=== PATIENT | male | born 1975 | race Hispanic/Latino ===

== ENCOUNTER 2020-03-07 08:09 | Inpatient (IN) | payer SELFPAY ==
[2020-03-07 08:25] LABS: Arterial Blood Carboxyhemoglob 1.3 % (0-1.5); Blood O2 Saturation 97.6 % (92-98.5)
[2020-03-07] MEDS ORDERED: NA CHLORIDE 0.9% 2,000 ML ONE (08:33)
[2020-03-07 08:41] LABS: Absolute Lymphocytes (CBC) 0.7 K/uL (0.7-4.9); Basophils % 0.9 % (0-1.3); Hematocrit 51.9 % (39.6-49.0); Lymphocytes % 3.8 % (15.3-44.8); MPV 9.9 fL (7.6-11.3); Protime INR 0.95; RBC Red Blood Cell Count 4.98 M/uL (4.33-5.43)
[2020-03-07] MEDS ORDERED: SODIUM BICARB 50 MEQ/50ML VIAL ONE (08:42)
[2020-03-07] MEDS ORDERED: D5W 1,000 ML with NA BICARB 8.4% 150 MEQ IV SCH ×2 (08:45)
[2020-03-07] MEDS ORDERED: INSULIN -REGULAR HUMAN 100 UNIT in NA CHLORIDE 0.9% 100 ML IV SCH ×2 (09:00→09:27)
[2020-03-07 09:23] LABS: ALT/SGPT 69 U/L (12-78); AST/SGOT 29 U/L (15-37); Alkaline Phosphatase 157 U/L (45-117); BUN Blood Urea Nitrogen 29 mg/dL (7-18); Bilirubin Direct 0.2 mg/dL (0-0.2); Bilirubin Total 0.6 mg/dL (0.2-1.0); Magnesium 3.2 mg/dL (1.8-2.4); NT PRO-BNP 99 pg/mL (<125); Potassium 4.2 mmol/L (3.5-5.1); Protein, Total 8.6 g/dL (6.4-8.2); Sodium Level 125 mmol/L (136-145); Troponin (Emerg Dept Use Only) < 0.02 ng/mL (0.0-0.045)
[2020-03-07] MEDS ORDERED: ONDANSETRON 4 MG/2 ML VIAL IV PRN (09:23)
--- NOTE | 2020-03-07 09:24 | RAD REPORT ---
EXAM DESCRIPTION: Funmilayo Single View03/07/2020 8:54 am CLINICAL HISTORY: Shortness of breath COMPARISON: none FINDINGS: The lungs appear clear of acute infiltrate. The heart is normal size IMPRESSION: No acute abnormalities displayed
[2020-03-07 09:30] LABS: Bicarbonate 3 mmol/L (21-32); Glucose Level 902 mg/dL (74-106)
--- NOTE | 2020-03-07 09:44 | ER ---
Nurse's Notes [facility] Name: Mikael Chavez Age: 44 yrs Sex: Male : 1975 Arrival Date: 03/07/2020 Time: 08:09 Bed 5 Private MD: Diagnosis: Acute kidney failure;Type 1 diabetes mellitus with ketoacidosis without coma;Hypermagnesemia Presentation: 03/07 08:10 Chief complaint: Patient states: thinks his blood sugar is high, and BP is high, is iw having trouble seeing, pt tachypneic , has been out of meds for two weeks. 08:22 Risk Assessment: Do you want to hurt yourself or someone else? Patient reports no iw desire to harm self or others. Onset of symptoms was March 06, 2020. 08:22 Method Of Arrival: Wheelchair iw 08:22 Acuity: BROOKE 2 iw 08:33 Coronavirus screen: At this time, the client does not indicate any symptoms associated iw with coronavirus-19. Ebola Screen: Patient negative for fever greater than or equal to 101.5 degrees Fahrenheit, and additional compatible Ebola Virus Disease symptoms Patient denies exposure to infectious person. Patient denies travel to an Ebola-affected area in the 21 days before illness onset. No symptoms or risks identified at this time. Initial Sepsis Screen: Does the patient meet any 2 criteria? No. Patient's initial sepsis screen is negative. Does the patient have a suspected source of infection? No. Patient's initial sepsis screen is negative. Historical: - Allergies: 08:33 No Known Allergies; iw - Home Meds: 08:33 metformin 1,000 mg Oral tab 1 tab 2 times per day [Active]; lisinopril Oral once daily iw [Active]; glimepiride Oral once daily [Active]; - PMHx: 08:33 Diabetes - NIDDM; Hypertension; iw - Immunization history:: Adult Immunizations unknown. - Social history:: Smoking status: unknown. Screenin:25 Abuse screen: Denies threats or abuse. Denies injuries from another. Nutritional jl7 screening: No deficits noted. Tuberculosis screening: No symptoms or risk factors identified. Fall Risk IV access (20 points). Total Cooper Fall Scale indicates No Risk (0-24 pts). Assessment: 08:15 General: Appears distressed, uncomfortable, ill, Behavior is cooperative, anxious, jl7 restless. Pain: Denies pain. Neuro: Level of Consciousness is obeys commands, confused, Oriented to person, situation, Speech is slurred, Facial symmetry appears normal. Cardiovascular: Heart tones present Patient's skin is warm and dry. Rhythm is. Respiratory: Airway is patent Respiratory effort is even, labored, with nasal flaring, Respiratory pattern is symmetrical, Kussmaul tachypnea. Derm: Skin is pink, warm \T\ dry. 09:12 Reassessment: insulin drip started to right hand, at 6 units per hour, pt voided per iw urinal 500+ ml. 10:15 Reassessment: Pranav Hugger placed on Pt. jl7 10:15 Reassessment: Pt placed in hospital bed. jl7 12:00 Reassessment: Dr. Felipe at bedside. jl7 13:00 Reassessment: Pt noted to be vomiting coffee ground emesis, ERP notified, see MAR for jl7 orders. 13:12 Reassessment: 80 mg Protonix IVP given, ERP notified. jl7 13:15 Reassessment: Dr. Felipe notified of pt status. jl7 Vital Signs: 08:27 BP 137 / 65; Pulse 83; Resp 30 S; Pulse Ox 100% on R/A; Weight 72.57 kg; iw 09:00 BP 127 / 68; Pulse 92; Resp 28; Pulse Ox 100% ; jl7 09:22 BP 127 / 70; Pulse 88; Resp 26; Pulse Ox 100% ; jl7 10:00 BP 109 / 86; Pulse 88; Resp 29; Pulse Ox 100% ; jl7 10:15 Temp 91.9(R); jl7 10:26 BP 135 / 81; Pulse 87; Resp 26; Pulse Ox 100% ; jl7 11:00 BP 137 / 78; Pulse 87; Resp 25; Pulse Ox 100% ; jl7 11:31 BP 132 / 83; Pulse 100; Resp 23 S; Temp 92.8(C); Pulse Ox 100% on R/A; jl7 12:04 BP 117 / 70; Pulse 99; Resp 25; Temp 93.4; Pulse Ox 100% ; jl7 13:15 BP 144 / 73; Pulse 133; Resp 24; Temp 96.1; Pulse Ox 100% ; jl7 ED Course: 08:09 Patient arrived in ED. as 08:11 Figueroa Delgado MD is Attending Physician. rn 08:12 Jack Steinberg PA is PHCP. rn 08:23 Triage completed. iw 08:25 Patient has correct armband on for positive identification. Placed in gown. Bed in low jl7 position. Call light in reach. Side rails up X 1. monitoring engineer on. Pulse ox on. NIBP on. Warm blanket given. 08:30 Ritesh Mirza, LYN is Primary Nurse. jl7 08:33 Arm band placed on. iw 08:38 Inserted saline lock: 20 gauge in right hand, using aseptic technique. jl7 08:40 EKG done, by ED staff, reviewed by Jack JARQUIN. Inserted saline lock: 20 gauge in em1 right antecubital area, using aseptic technique. Blood collected. 08:40 Initial lab(s) drawn, by ia, sent to lab. em1 08:54 XRAY Chest (1 view) In Process Unspecified. EDMS 09:42 Aguilar Felipe MD is Hospitalizing Provider. jr8 09:54 Inserted saline lock: 22 gauge in left hand, using aseptic technique. jl7 11:00 Speci-cath kit inserted, using sterile technique, 16 Fr., specimen obtained. returned jl7 clear yellow urine. Patient tolerated well. 11:00 Pt pulled right hand IV, intact, blood controlled. jl7 11:28 BMP Sent. jl7 11:28 COVID-19 Sent. jl7 11:28 COVID-19 swab sent to lab. jl7 12:02 No provider procedures requiring assistance completed. jl7 12:06 Inserted saline lock: 20 gauge in right hand, using aseptic technique. jl7 12:42 CORONAVIRUS Sent. jl7 12:42 Urine Dipstick--Ancillary (enter results) Sent. jl7 Administered Medications: 08:25 Drug: NS 0.9% 1000 ml Route: IV; Rate: 1000 ml; Site: left antecubital; jl7 09:20 Follow up: Response: No adverse reaction; IV Status: Completed infusion; IV Intake: jl7 1000ml 08:25 Drug: NS 0.9% 1000 ml Route: IV; Rate: 1000 ml; Site: left antecubital; jl7 10:29 Follow up: Response: No adverse reaction; IV Status: Completed infusion; IV Intake: jl7 1000ml 08:32 Drug: Sodium Bicarbonate 1 amp Route: IVP; Site: left antecubital; jl7 09:57 Follow up: Response: No adverse reaction jl7 09:12 Drug: Insulin Drip - (Insulin Regular Human 100 units, NS 0.9% 100 ml) {Co-Signature: [facility] bp (Raul Woodson RN).} Route: IV; Rate: calculated rate; Site: right hand; 09:41 Follow up: Rate change 7 units/hr iw 12:05 Follow up: Rate change 9 units/hr jl7 13:30 Follow up: IV Status: Infusion continued upon admission jl7 09:15 Drug: D5W 1000 ml, Sodium Bicarbonate 150 mEq Route: IV; Rate: 150 ml/hr; Site: left jl antecubital; 09:56 Follow up: IV Status: Infusion continued upon admission jl7 12:05 Follow up: Rate change bolus jl7 12:30 Follow up: Response: No adverse reaction; IV Status: Completed infusion; IV Intake: jl7 1000ml 11:10 Drug: Ativan 0.5 mg Route: IVP; Site: left antecubital; jl7 12:05 Follow up: Response: No adverse reaction jl7 11:55 Drug: NS 0.9% with KCl 20 mEq/L 1000 ml Route: IV; Rate: 500 ml/hr; Site: right hand; jl7 13:30 Follow up: IV Status: Infusion continued upon admission jl7 13:03 Drug: Phenergan 12.5 mg Route: IVP; Site: right hand; jl7 13:20 Follow up: Response: No adverse reaction; Nausea is decreased jl7 13:08 Drug: ProTONIX 40 mg Route: IVP; Site: right hand; jl7 13:30 Follow up: Response: No adverse reaction jl7 Intake: 09:20 IV: 1000ml; Total: 1000ml. jl7 10:29 IV: 1000ml; Total: 2000ml. jl7 12:30 IV: 1000ml; Total: 3000ml. jl7 Output: 09:00 Urine: 400ml (Voided); Total: 400ml. jl7 11:00 Urine: 850ml (Voided); Total: 1250ml. jl7 12:04 Urine: 850ml (Ma); Total: 2100ml. jl7 Outcome: 09:43 Decision to Hospitalize by Provider. jr8 13:28 Admitted to ICU accompanied by nurse, accompanied by tech, via stretcher, on monitor, jl7 with chart, Report called to LYN Hood 13:28 Condition: stable 13:28 Discharge instructions given to patient, Instructed on the need for admit, Demonstrated understanding of instructions. 13:30 Patient left the ED. jl7 Signatures: Dispatcher [employer] Elizabeth Lui Irene, LYN RN iw Figueroa Delgado MD MD rn Jonathan, Jack Aguirre, PA PA jr8 Ritesh Mirza RN RN jl7 Raul Woodson RN bp Corrections: (The following items were deleted from the chart) 08:34 08:10 Chief complaint: Patient states: thinks his blood sugar is high, and BP is high, iw is having trouble seeing, pt tachypneic iw 09:08 08:27 BP 137 / 65; Pulse 83bpm; Resp 30bpm; Spontaneous; Pulse Ox 100% RA; iw iw 11:31 09:22 BP 127 / 70; Pulse 88bpm; Resp 26bpm; Pulse Ox 100%; Temp 97.1F; jl7 jl7 12:09 11:00 Ma cath inserted, using sterile technique, 16 Fr., by ia, balloon inflated, to jl7 gravity drainage, urine specimen collected. returned clear yellow urine. Patient tolerated well. jl7
--- NOTE | 2020-03-07 09:44 | EDPHYS ---
Physician Documentation [facility] Name: Mikael Chavez Age: 44 yrs Sex: Male : 1975 Arrival Date: 03/07/2020 Time: 08:09 Bed 5 Private MD: ED Physician Figueroa Delgado HPI: 03/07 09:45 This 44 yrs old Male presents to ER via Wheelchair with complaints of High jr8 Blood Sugar. 09:45 The patient or guardian reports hyperglycemia, polydipsia. Onset: The symptoms/episode jr8 began/occurred gradually. Associated signs and symptoms: Pertinent positives: shortness of breath. Current symptoms: In the emergency department the patient's symptoms are unchanged from the initial presentation. It is unknown whether or not the patient has had similar symptoms in the past. The patient has not recently seen a physician. Patient stated that he has been out of his meds. Yesterday started to have blurred vision and now with shortness of breath . Historical: - Allergies: 08:33 No Known Allergies; iw - Home Meds: 08:33 metformin 1,000 mg Oral tab 1 tab 2 times per day [Active]; lisinopril Oral once daily iw [Active]; glimepiride Oral once daily [Active]; - PMHx: 08:33 Diabetes - NIDDM; Hypertension; iw - Immunization history:: Adult Immunizations unknown. - Social history:: Smoking status: unknown. ROS: 09:45 ENT: Negative for injury, pain, and discharge, Neck: Negative for injury, pain, and jr8 swelling, Cardiovascular: Negative for chest pain, palpitations, and edema, Abdomen/GI: Negative for abdominal pain, nausea, vomiting, diarrhea, and constipation, Back: Negative for injury and pain, MS/Extremity: Negative for injury and deformity, Skin: Negative for injury, rash, and discoloration, Neuro: Negative for headache, weakness, numbness, tingling, and seizure. 09:45 Constitutional: Positive for fatigue, malaise. 09:45 Eyes: Positive for blurry vision. 09:45 Respiratory: Positive for shortness of breath. 09:45 Endocrine: Positive for polydipsia. Exam: 09:45 Eyes: Pupils equal round and reactive to light, extra-ocular motions intact. Lids and jr8 lashes normal. Conjunctiva and sclera are non-icteric and not injected. Cornea within normal limits. Periorbital areas with no swelling, redness, or edema. ENT: Nares patent. No nasal discharge, no septal abnormalities noted. Tympanic membranes are normal and external auditory canals are clear. Oropharynx with no redness, swelling, or masses, exudates, or evidence of obstruction, uvula midline. Mucous membranes moist. Neck: Trachea midline, no thyromegaly or masses palpated, and no cervical lymphadenopathy. Supple, full range of motion without nuchal rigidity, or vertebral point tenderness. No Meningismus. Cardiovascular: Regular rate and rhythm with a normal S1 and S2. No gallops, murmurs, or rubs. Normal PMI, no JVD. No pulse deficits. Abdomen/GI: Soft, non-tender, with normal bowel sounds. No distension or tympany. No guarding or rebound. No evidence of tenderness throughout. Back: No spinal tenderness. No costovertebral tenderness. Full range of motion. Skin: Warm, dry with normal turgor. Normal color with no rashes, no lesions, and no evidence of cellulitis. MS/ Extremity: Pulses equal, no cyanosis. Neurovascular intact. Full, normal range of motion. 09:45 Respiratory: mild respiratory distress is noted, Respirations: tachypnea, that is moderate. 09:45 Neuro: Orientation: to person, place \T\ time. Mentation: able to follow commands, slow to respond, sleepy, Memory: appropriate for stated age, Cranial nerves: CN I not tested, CN II- XII are normal as tested, visual adames are intact. extraocular movements are intact, Facial palsy and sensory deficits are absent. Nystagmus is absent. Speech is slurred, Tongue strength is normal, Motor: moves all fours, Sensation: no obvious gross deficits, Gait: not tested. seizure activity, is not displayed by the patient, Abnormal movements: there are no abnormal movements. 12:10 ECG was reviewed by the Attending Physician. jr8 Vital Signs: 08:27 BP 137 / 65; Pulse 83; Resp 30 S; Pulse Ox 100% on R/A; Weight 72.57 kg; iw 09:00 BP 127 / 68; Pulse 92; Resp 28; Pulse Ox 100% ; jl7 09:22 BP 127 / 70; Pulse 88; Resp 26; Pulse Ox 100% ; jl7 10:00 BP 109 / 86; Pulse 88; Resp 29; Pulse Ox 100% ; jl7 10:15 Temp 91.9(R); jl7 10:26 BP 135 / 81; Pulse 87; Resp 26; Pulse Ox 100% ; jl7 11:00 BP 137 / 78; Pulse 87; Resp 25; Pulse Ox 100% ; jl7 11:31 BP 132 / 83; Pulse 100; Resp 23 S; Temp 92.8(C); Pulse Ox 100% on R/A; jl7 12:04 BP 117 / 70; Pulse 99; Resp 25; Temp 93.4; Pulse Ox 100% ; jl7 13:15 BP 144 / 73; Pulse 133; Resp 24; Temp 96.1; Pulse Ox 100% ; jl7 MDM: 08:11 Patient medically screened. rn 09:41 Data reviewed: vital signs, nurses notes, lab test result(s), EKG, radiologic studies, jr8 plain films. Data interpreted: Pulse oximetry: on room air is 100 %. Interpretation: normal. Counseling: I had a detailed discussion with the patient and/or guardian regarding: the historical points, exam findings, and any diagnostic results supporting the discharge/admit diagnosis, lab results, radiology results, the need for further work-up and treatment in the hospital. Physician consultation: Aguilar Felipe MD was called at 09:42, was contacted at 09:42, regarding admission, to the ICU, consult, patient's condition, and will see patient. 09:49 ED course: Spoke with over phone and explained to her that he will need ICU jr8 admission for his glucose. 03/07 08:15 Order name: Basic Metabolic Panel; Complete Time: 03/07 08:15 Order name: CBC with Diff; Complete Time: 08:48 03/07 08:15 Order name: LFT's; Complete Time: 03/07 08:15 Order name: Magnesium; Complete Time: :03/07 08:15 Order name: NT PRO-BNP; Complete Time: :34 03/07 08:15 Order name: PT-INR; Complete Time: 08:48 03/07 08:15 Order name: Troponin (emerg Dept Use Only); Complete Time: :34 03/07 08:15 Order name: ABG; Complete Time: 08:51 jr8 03/07 08:15 Order name: Ketone, Serum; Complete Time: 09:34 jr8 03/07 08:26 Order name: Glucose, Ancillary Testing; Complete Time: 08:31 EDMS 03/07 09:28 Order name: Acetone Level EDMS 03/07 09:28 Order name: Acetone Level; Complete Time: 13:01 EDMS 03/07 09:28 Order name: Acetone Level EDMS 03/07 09:28 Order name: Acetone Level EDMS 03/07 09:28 Order name: Acetone Level EDMS 03/07 09:28 Order name: Acetone Level EDMS 03/07 09:28 Order name: Acetone Level EDMS 03/07 09:28 Order name: Basic Metabolic Panel EDMS 03/07 09:28 Order name: Basic Metabolic Panel; Complete Time: 13:01 EDMS 03/07 09:28 Order name: Basic Metabolic Panel EDMS 03/07 09:28 Order name: Basic Metabolic Panel EDMS 03/07 09:28 Order name: Basic Metabolic Panel EDMS 03/07 09:28 Order name: Basic Metabolic Panel EDMS 03/07 09:28 Order name: Basic Metabolic Panel EDMS 03/07 09:28 Order name: CBC with Automated Diff EDMS 03/07 09:28 Order name: CBC with Automated Diff EDMS 03/07 09:28 Order name: CBC with Automated Diff EDMS 03/07 09:28 Order name: CBC with Automated Diff EDMS 03/07 09:29 Order name: Lipid Profile EDMS 03/07 09:29 Order name: Lipid Profile EDMS 03/07 08:15 Order name: XRAY Chest (1 view); Complete Time: 09:25 jr8 03/07 09:29 Order name: Magnesium EDMS 03/07 09:29 Order name: Magnesium EDMS 03/07 09:29 Order name: Magnesium EDMS 03/07 09:29 Order name: Phosphorus EDMS 03/07 09:29 Order name: Phosphorus EDMS 03/07 09:29 Order name: Phosphorus EDMS 03/07 09:29 Order name: Phosphorus EDMS 03/07 09:29 Order name: ABG Arterial Blood Gas; Complete Time: 11:16 EDMS 03/07 09:30 Order name: Ferritin EDMS 03/07 09:30 Order name: Folic Acid, (Folate) EDLA 03/07 09:30 Order name: Hemoglobin A1c EDLA 03/07 09:30 Order name: Iron EDLA 03/07 09:30 Order name: Lactate EDLA 03/07 09:30 Order name: T4 Free EDLA 03/07 09:30 Order name: Thyroid Stimulating Hormone EDLA 03/07 09:30 Order name: Vitamin B12 Level EDLA 03/07 10:29 Order name: BMP jl7 03/07 10:34 Order name: COVID-19 em1 03/07 11:31 Order name: Basic Metabolic Panel; Complete Time: 11:40 EDLA 03/07 12:09 Order name: Urine Dipstick--Ancillary (enter results) em1 03/07 12:19 Order name: CORONAVIRUS EDLA 03/07 12:50 Order name: Urine Dipstick-Ancillary; Complete Time: 12:53 EDLA 03/07 13:16 Order name: SARS-COV-2 RT PCR; Complete Time: 13:22 [facility] 03/07 08:15 Order name: EKG; Complete Time: 08:16 8 03/07 08:15 Order name: Cardiac monitoring; Complete Time: 08:29 jr8 03/07 08:15 Order name: EKG - Nurse/Tech; Complete Time: 08:35 8 03/07 08:15 Order name: IV Saline Lock; Complete Time: 08:29 jr8 03/07 08:15 Order name: Labs collected and sent; Complete Time: 08:29 8 03/07 08:15 Order name: O2 Per Protocol; Complete Time: 08:35 8 03/07 08:15 Order name: O2 Sat Monitoring; Complete Time: 08:29 8 03/07 09:28 Order name: CONS Pharmacy Consult EDLA 03/07 09:28 Order name: NPO EDLA 03/07 12:02 Order name: Urine Dipstick-Ancillary (obtain specimen); Complete Time: 12:07 EC:10 Rate is 92 beats/min. Rhythm is regular, Normal Sinus Rhythm. QRS [place] is Normal. DC jr8 interval is normal at 150 msec. QRS interval is normal at 100 msec. QT interval is prolonged at 504 msec. Q waves are Present in lead III. T waves are Normal. No ST changes noted. Clinical impression: No evidence of ischemia and NS Rhythm with Prolonged QT. Interpreted by me. Reviewed by me. Administered Medications: 08:25 Drug: NS 0.9% 1000 ml Route: IV; Rate: 1000 ml; Site: left antecubital; jl7 09:20 Follow up: Response: No adverse reaction; IV Status: Completed infusion; IV Intake: jl7 1000ml 08:25 Drug: NS 0.9% 1000 ml Route: IV; Rate: 1000 ml; Site: left antecubital; jl7 10:29 Follow up: Response: No adverse reaction; IV Status: Completed infusion; IV Intake: jl7 1000ml 08:32 Drug: Sodium Bicarbonate 1 amp Route: IVP; Site: left antecubital; jl7 09:57 Follow up: Response: No adverse reaction jl7 09:12 Drug: Insulin Drip - (Insulin Regular Human 100 units, NS 0.9% 100 ml) {Co-Signature: [facility] bp (Raul Woodson RN).} Route: IV; Rate: calculated rate; Site: right hand; 09:41 Follow up: Rate change 7 units/hr iw 12:05 Follow up: Rate change 9 units/hr jl7 13:30 Follow up: IV Status: Infusion continued upon admission jl7 09:15 Drug: D5W 1000 ml, Sodium Bicarbonate 150 mEq Route: IV; Rate: 150 ml/hr; Site: left [facility] antecubital; 09:56 Follow up: IV Status: Infusion continued upon admission jl7 12:05 Follow up: Rate change bolus jl7 12:30 Follow up: Response: No adverse reaction; IV Status: Completed infusion; IV Intake: jl7 1000ml 11:10 Drug: Ativan 0.5 mg Route: IVP; Site: left antecubital; jl7 12:05 Follow up: Response: No adverse reaction jl7 11:55 Drug: NS 0.9% with KCl 20 mEq/L 1000 ml Route: IV; Rate: 500 ml/hr; Site: right hand; jl7 13:30 Follow up: IV Status: Infusion continued upon admission jl7 13:03 Drug: Phenergan 12.5 mg Route: IVP; Site: right hand; jl7 13:20 Follow up: Response: No adverse reaction; Nausea is decreased jl7 13:08 Drug: ProTONIX 40 mg Route: IVP; Site: right hand; jl7 13:30 Follow up: Response: No adverse reaction jl7 Disposition: 13:59 Co-signature as Attending Physician, Figueroa Delgado MD. rn Disposition: 03/07/20 09:43 Hospitalization ordered by Aguilar Felipe for Inpatient Admission. Preliminary diagnosis are Acute kidney failure, Type 1 diabetes mellitus with ketoacidosis without coma, Hypermagnesemia. - Bed requested for Intensive Care Unit. - Status is Inpatient Admission. jl7 - Condition is Fair. - Problem is new. - Symptoms have improved. Critical care time excluding procedures: :45 Critical care time: Bedside Care: 20 minutes, Consultation: 10 minutes, Family jr8 Intervention: 10 minutes. Total time: 40 minutes Signatures: Dispatcher [employer] EDCarolin Ritter, RN Figueroa Morris MD MD rn Roszak, Josh, PA PA jr8 Ritesh Mirza RN RN jl7 Raul Woodson RN bp Corrections: (The following items were deleted from the chart) 13:30 09:43 Hospitalization Ordered by Aguilar Felipe MD for Inpatient Admission. Preliminary jl7 diagnosis is Acute kidney failure; Type 1 diabetes mellitus with ketoacidosis without coma; Hypermagnesemia. Bed requested for Intensive Care Unit. Status is Inpatient Admission. Condition is Fair. Problem is new. Symptoms have improved. jr8
[2020-03-07] MEDS ORDERED: CEFTRIAXONE/SWI 1gm 1 GM/10 ML SYR IV SCH (10:00)
[2020-03-07] MEDS: NA CHLORIDE 0.9% 1,000 ML IV SCH ×2 (10:00→12:00)
[2020-03-07] MEDS: D5 0.45 NS 1,000 ML IV SCH ×3 (10:00→23:20)
[2020-03-07] MEDS ORDERED: SODIUM BICARB 50 MEQ/50ML VIAL IV ONE (10:44)
[2020-03-07] MEDS ORDERED: LORazepam 2 MG/ML VIAL ONE (11:12)
[2020-03-07 11:13] LABS: Arterial Blood Carboxyhemoglob 1.4 % (0-1.5); Blood Gas Oxyhemoglobin 95.4 % (94-97); Blood O2 Saturation 98.1 % (92-98.5)
[2020-03-07 11:28] LABS: Potassium 3.7 mmol/L (3.5-5.1)
[2020-03-07] MEDS ORDERED: NS KCL 20MEQ 1,000 ML IV ONE (12:00)
[2020-03-07 12:50] LABS: Urine Blood 2+ (NEG); Urine Glucose 2+ (NEG); Urine Protein 1+ (NEG); Urine Specific Gravity 1.015 (1.005-1.030)
[2020-03-07 12:54] LABS: BUN Blood Urea Nitrogen 29 mg/dL (7-18); Potassium 3.7 mmol/L (3.5-5.1); Sodium Level 132 mmol/L (136-145)
[2020-03-07 12:55] LABS: Bicarbonate 6 mmol/L (21-32); Glucose Level 675 mg/dL (74-106)
[2020-03-07] MEDS ORDERED: PANTOPRAZOLE 40 MG INJ ONE ×2 (13:12→17:13)
[2020-03-07] MEDS ORDERED: PROMETHAZINE INJ 25 MG/ML AMP ONE (13:12)
[2020-03-07] MEDS ORDERED: PANTOPRAZOLE 40 MG INJ IVP ONE (13:14)
[2020-03-07] MEDS ORDERED: SODIUM CHLORIDE 0.9% 10ML INJ IV PRN (13:14)
[2020-03-07] MEDS ORDERED: PIPER/TAZO/NS 3.375gm 3.375 GM/100 ML BAG IVPB SCH (14:00)
[2020-03-07] MEDS: PIPER/TAZO/NS 3.375gm 3.375 GM/100 ML BAG IVPB SCH ×2 (14:00→20:32)
[2020-03-07] MEDS ORDERED: RSI MEDICATION KIT IV ONE (14:08)
[2020-03-07] MEDS ORDERED: propofoL 1,000 MG/100 ML VIAL IV ONE ×2 (14:09→17:14)
--- NOTE | 2020-03-07 14:51 | RAD REPORT ---
EXAM DESCRIPTION: RAD - Abdomen 1 View (KUB) - 03/07/2020 2:36 pm CLINICAL HISTORY: NGT PLACEMENT Pain COMPARISON: No comparisons FINDINGS: Enteric tube is coiled in the stomach. Tip of the ET tube is above the ramandeep.
[2020-03-07] MEDS ORDERED: NOREPINEPHRINE 4 MG/4 ML VIAL ONE (14:52)
[2020-03-07] MEDS ORDERED: D5W 250 ML IV ONE (14:52)
--- NOTE | 2020-03-07 14:52 | RAD REPORT ---
EXAM DESCRIPTION: RAD - Chest Single View - 03/07/2020 2:36 pm CLINICAL HISTORY: pneumonia Chest pain. COMPARISON: Chest Single View dated 03/07/2020 FINDINGS: Portable technique limits examination quality. The lungs are grossly clear. The heart is normal in size. Tip of the ET tube is above the ramandeep. Ent brian tube coils in the stomach.
[2020-03-07] MEDS ORDERED: FENTANYL CITR 100 MCG/2 ML ONE (14:53)
[2020-03-07] MEDS: D5.45NS W/KCL 20MEQ 20 MEQ/1,000 ML BAG IV SCH ×2 (15:00→20:33)
[2020-03-07] MEDS ORDERED: MIDAZOLAM HCL 2 MG/2 ML INJ ONE (15:16)
[2020-03-07 15:40] LABS: Absolute Lymphocytes (CBC) 0.8 K/uL (0.7-4.9); Basophils % 0.8 % (0-1.3); Hematocrit 44.8 % (39.6-49.0); Lymphocytes % 6.4 % (15.3-44.8); MPV 10.2 fL (7.6-11.3); RBC Red Blood Cell Count 4.71 M/uL (4.33-5.43)
[2020-03-07 15:43] LABS: Arterial Blood Carboxyhemoglob 1.6 % (0-1.5); Blood O2 Saturation 99.9 % (92-98.5)
[2020-03-07 16:00] LABS: BUN Blood Urea Nitrogen 26 mg/dL (7-18); Potassium 3.5 mmol/L (3.5-5.1); Sodium Level 139 mmol/L (136-145)
[2020-03-07 16:01] LABS: Bicarbonate 10 mmol/L (21-32); Glucose Level 438 mg/dL (74-106)
[2020-03-07 16:54] LABS: Blood Morphology Comment NOT SEEN (NOT SEEN); Platelet Estimate ADEQ; White Blood Cell Scan OK (OK)
[2020-03-07] MEDS ORDERED: PIPER/TAZO/NS 3.375gm 3.375 GM/100 ML BAG ONE ×2 (17:14→23:55)
[2020-03-07 18:50] LABS: BUN Blood Urea Nitrogen 23 mg/dL (7-18); Bicarbonate 15 mmol/L (21-32); Glucose Level 348 mg/dL (74-106); Potassium 3.7 mmol/L (3.5-5.1); Sodium Level 141 mmol/L (136-145)
[2020-03-07] MEDS ORDERED: INSULIN -REGULAR HUMAN 50 UNIT/0.5 ML ML ONE (19:52)
[2020-03-07] MEDS ORDERED: NA CHLORIDE 0.9% 100 ML IV ONE (19:52)
[2020-03-07] MEDS ORDERED: D5.45NS W/KCL 20MEQ 1,000 ML IV ONE ×2 (19:52→22:46)
[2020-03-07 19:57] VITALS: BMI 26.4
[2020-03-07] MEDS ORDERED: propofoL 1,000 MG/100 ML VIAL IV PRN (20:05)
[2020-03-07] MEDS: INSULIN -REGULAR HUMAN 100 UNIT in NA CHLORIDE 0.9% 100 ML IV SCH (20:34)
[2020-03-07] MEDS: propofoL 1,000 MG/100 ML VIAL IV PRN (20:51)
[2020-03-07] MEDS: PANTOPRAZOLE 40 MG INJ IVP SCH (20:51)
[2020-03-07 22:51] LABS: BUN Blood Urea Nitrogen 21 mg/dL (7-18); Bicarbonate 17 mmol/L (21-32); Glucose Level 291 mg/dL (74-106); Potassium 3.1 mmol/L (3.5-5.1); Sodium Level 142 mmol/L (136-145)
[2020-03-07] MEDS: KCL 20 MEQ/100 mL IVPB 20 MEQ/100 ML BAG IV SCH (23:50)
[2020-03-07] MEDS ORDERED: KCL 20 MEQ/100 mL IVPB 40 MEQ/200 ML BAG IV ONE (23:55)
[2020-03-08] MEDS: D5.45NS W/KCL 20MEQ 20 MEQ/1,000 ML BAG IV SCH ×2 (01:02→06:01)
[2020-03-08] MEDS: PIPER/TAZO/NS 3.375gm 3.375 GM/100 ML BAG IVPB SCH ×3 (01:03→17:23)
[2020-03-08] MEDS: propofoL 1,000 MG/100 ML VIAL IV PRN ×2 (01:04→08:38)
[2020-03-08] MEDS: KCL 20 MEQ/100 mL IVPB 20 MEQ/100 ML BAG IV SCH ×3 (01:31→06:05)
[2020-03-08 03:30] LABS: BUN Blood Urea Nitrogen 20 mg/dL (7-18); Bicarbonate 17 mmol/L (21-32); Glucose Level 201 mg/dL (74-106); Sodium Level 143 mmol/L (136-145)
[2020-03-08] MEDS ORDERED: propofoL 1,000 MG/100 ML VIAL IV ONE ×2 (04:19→08:47)
--- NOTE | 2020-03-08 05:57 | EKG ---
Test Date: 2020-03-07 Test Time: 08:36:56 Lead Mobile Developer: DWAYNE MEASUREMENT RESULTS: Intervals: Rate: 92 VT: 150 QRSD: 100 QT: 408 QTc: 504 [place]: P: 64 VT: 150 QRS: 42 T: 18 INTERPRETIVE STATEMENTS: Normal sinus rhythm Prolonged QT Abnormal ECG No previous ECG available for comparison Electronically Signed On 03-08-20 05:55:23 CDT by Murray Roberts
[2020-03-08] MEDS: D5 0.45 NS 1,000 ML IV SCH (06:00)
[2020-03-08] MEDS: INSULIN -REGULAR HUMAN 100 UNIT in NA CHLORIDE 0.9% 100 ML IV SCH (06:03)
[2020-03-08] MEDS ORDERED: NA CHLORIDE 0.9% 100 ML IV ONE (06:10)
[2020-03-08] MEDS ORDERED: D5.45NS W/KCL 20MEQ 1,000 ML IV ONE (06:10)
[2020-03-08 06:42] LABS: Absolute Lymphocytes (CBC) 0.7 K/uL (0.7-4.9); Basophils % 0.8 % (0-1.3); Hematocrit 35.6 % (39.6-49.0); Lymphocytes % 10.8 % (15.3-44.8); MPV 9.1 fL (7.6-11.3); RBC Red Blood Cell Count 3.98 M/uL (4.33-5.43)
[2020-03-08 07:19] LABS: Phosphorus 0.1 mg/dL (2.5-4.9)
[2020-03-08 07:23] LABS: BUN Blood Urea Nitrogen 16 mg/dL (7-18); Bicarbonate 19 mmol/L (21-32); Ferritin 310.8 ng/mL (26-388); Folic Acid, (Folate) 9.4 ng/mL (3.1-17.5); Glucose Level 121 mg/dL (74-106); Sodium Level 142 mmol/L (136-145); Thyroid Stimulating Hormone 0.661 uIU/mL (0.360-3.740)
[2020-03-08 07:24] LABS: Potassium 2.9 mmol/L (3.5-5.1)
[2020-03-08] MEDS ORDERED: POTASSIUM PHOS 30 MM in NA CHLORIDE 0.9% 500 ML IV ONE ×3 (07:26→07:31)
[2020-03-08] MEDS ORDERED: Magnesium Sulfate 2gm IVPB 2 G/50 ML BAG IV ONE ×2 (07:32→09:04)
[2020-03-08] MEDS ORDERED: D5.45NS W/KCL 20MEQ 20 MEQ/1,000 ML BAG IV SCH (07:32)
--- NOTE | 2020-03-08 07:40 | P.HP ---
Certification for Inpatient Patient admitted to: Inpatient With expected LOS: >2 Midnights Patient will require the following post-hospital care: None Practitioner: I am a practitioner with admitting privileges, knowledge of patient current condition, hospital course, and medical plan of care. Services: Services provided to patient in accordance with Admission requirements found in Title 42 Section 412.3 of the Code of Federal Regulations Patient History Date of Service: 03/07/20 Reason for admission: DIABETIC KETOACIDOSIS History of Present Illness: Patient is a 44-year-old gentleman who came to the hospital with diabetic ketoacidosis. Patient has been out of his insulin for the last 2 weeks. He has not taken anything at that time. He was getting more short of breath so he came into the emergency room for further evaluation. In the emergency room, he was found to be in diabetic ketoacidosis. His pH was actually 6.8. His bicarb was only 1. He had ketones and acetones positive. He was started on IV fluids and an insulin drip. Patient was given bicarb in the emergency room as well. Will be admitted to the intensive care unit for diabetic ketoacidosis. Patient will get repeat ABGs in the next hr. We will monitor him closely. Allergies No Known Allergies Allergy (Unverified 03/07/20 08:42) Home Medications: Atorvastatin Calcium [Lipitor] 10 mg PO DAILY 03/08/20 Glimepiride [Amaryl] 1 mg PO DAILY 03/08/20 Metformin HCl 1,000 mg PO BID 03/08/20 lisinopriL [Lisinopril] 10 mg PO DAILY 03/08/20 - Past Medical/Surgical History Diabetic: Yes -: Type 1 diabetes Past Surgical History: Unable to obtain - Family History Mother Family History: Reviewed- Non-Contributory - Social History Smoking Status: Unknown if ever smoked Alcohol use: No CD- Drugs: No Caffeine use: No Place of Residence: Home Review of Systems 10-point ROS is otherwise unremarkable Physical Examination - Vital Signs Temperature: 98.5 F Blood Pressure: 103/61 Pulse: 101 Respirations: 24 Pulse Ox (%): 100 - Physical Exam General: Alert, In no apparent distress, Oriented x2, Confused, Other (Patient is tachypneic) HEENT: Atraumatic, PERRLA, Mucous membr. moist/pink, EOMI, Sclerae nonicteric Neck: Supple, 2+ carotid pulse no bruit, No LAD, Without JVD or thyroid abnormality Respiratory: Diminished Cardiovascular: Regular rate/rhythm, Normal S1 S2, No murmurs, Other (Patient is tachycardic) Gastrointestinal: Normal bowel sounds, Soft and benign, Non-distended, No tenderness, No rebound, No guarding Musculoskeletal: No clubbing, No swelling, No tenderness Integumentary: No rashes Neurological: Normal tone, Sensation intact, Cranial nerves 3-12 intact, Abnormal gait, Abnormal speech, Abnormal strength Lymphatics: No axilla or inguinal lymphadenopathy - Studies Laboratory Data (last 24 hrs) 03/07/20 08:20: PT 11.2, INR 0.95 03/07/20 08:20: WBC 18.2 H, Hgb 15.6, Hct 51.9 H, Plt Count 416 H 03/07/20 08:20: Sodium 125 L, Potassium 4.2, BUN 29 H, Creatinine 2.15 H, Glucose 902 H*, Magnesium 3.2 H, Total Bilirubin 0.6, AST 29, ALT 69, Alkaline Phosphatase 157 H Assessment & Plan - Problems (Diagnosis) (1) Diabetic ketoacidosis Current Visit: Yes Status: Acute (2) Metabolic acidosis Current Visit: Yes Status: Acute (3) Noncompliance Current Visit: Yes Status: Acute - Plan 1. IV hydration 2. Insulin drip 3. Accu-Cheks q1h 4. Measure anion gap every 2 hrs 5. Resume diet once anion gap is closed and will resume insulin pump 6. Diabetic education 7. Long-acting insulin once patient able to tolerate diet and at that time will discontinue insulin drip 8. Urine drug screen 9. GI and DVT prophylaxis Discharge Plan: Home Plan to discharge in: Greater than 2 days - Advance Directives Does patient have a Living Will: No Does patient have a Durable POA for Healthcare: No - Code Status/Comfort Care Code Status Assessed: Yes Code Status: Full Code Critical Care: Yes Time Spent Managing PTS Care (In Minutes): 60
--- NOTE | 2020-03-08 07:46 | P.PN ---
Subjective Date of Service: 03/07/20 I was notified by emergency room that patient vomited. The ICU nurses received the patient and felt like patient had aspirated. On further evaluation the patient was in more respiratory distress. Decision was made to intubate the patient. Patient had NG tube placed and he had about a L of coffee-ground em esis. Emergency Room assisted with intubating the patient. Patient's respiratory rate was increased on mechanical ventilation as patient was severely acidotic. Will repeat ABGs. Continue with aggressive correction of insulin drip. Review of Systems 10-point ROS is otherwise unremarkable Physical Examination - Vital Signs Temperature: 98.5 F Blood Pressure: 103/61 Pulse: 101 Respirations: 24 Pulse Ox (%): 100 - Physical Exam General: Other (Intubated and sedated) HEENT: Other (ET tube and NG tube in place) Respiratory: Clear to auscultation bilaterally, Normal air movement Cardiovascular: Regular rate/rhythm, Normal S1 S2, No murmurs Gastrointestinal: Normal bowel sounds, Soft and benign, Non-distended, No tenderness Musculoskeletal: No clubbing, No swelling, No tenderness Neurological: Other (The patient is intubated and sedated) - Studies Laboratory Data (last 24 hrs) 03/07/20 08:20: PT 11.2, INR 0.95 03/07/20 08:20: WBC 18.2 H, Hgb 15.6, Hct 51.9 H, Plt Count 416 H 03/07/20 08:20: Sodium 125 L, Potassium 4.2, BUN 29 H, Creatinine 2.15 H, Glucose 902 H*, Magnesium 3.2 H, Total Bilirubin 0.6, AST 29, ALT 69, Alkaline Phosphatase 157 H Medications List Reviewed: Yes Assessment & Plan - Problems (Diagnosis) (1) Acute respiratory failure Current Visit: Yes Status: Acute (2) Diabetic ketoacidosis Current Visit: Yes Status: Acute (3) Metabolic acidosis Current Visit: Yes Status: Acute (4) Noncompliance Current Visit: Yes Status: Acute (5) Aspiration pneumonia Current Visit: Yes Status: Acute - Plan 1. Continue with broad-spectrum IV antibiotic coverage; continue mechanical ventilation with increased respiratory rate to assist with correction of severe acidosis 2. IV hydration 2. Insulin drip 3. Accu-Cheks q1h 4. Measure anion gap every 2 hrs; replace electrolytes as needed 5. Resume diet once anion gap is closed and will resume insulin pump 6. Diabetic education 7. Long-acting insulin once patient able to tolerate diet and at that time will discontinue insulin drip 8. Urine drug screen 9. GI and DVT prophylaxis Discharge Plan: Home Plan to discharge in: Greater than 2 days - Advance Directives Does patient have a Living Will: No Does patient have a Durable POA for Healthcare: No - Code Status/Comfort Care Code Status: Full Code Critical Care: Yes Time Spent Managing PTS Care (In Minutes): 45
[2020-03-08] MEDS: D5W 1,000 ML with POTASSIUM CL 20 MEQ IV SCH ×4 (08:02→18:06)
--- NOTE | 2020-03-08 08:20 | RAD REPORT ---
EXAM DESCRIPTION: [facility] Single View03/08/2020 8:00 am CLINICAL HISTORY: Pneumonia COMPARISON: March 07, 2020 FINDINGS: The lungs appear clear of acute infiltrate. The heart is normal size. An endotracheal tube has its tip at the ramandeep. A nasogastric tube is coiled within the stomach
--- NOTE | 2020-03-08 08:23 | P.PN ---
Subjective Date of Service: 03/08/20 Patient was extubated. Weaning off insulin drip. Start diet. Will start long- acting insulin. The patient does well then transferred to the floor. Review of Systems 10-point ROS is otherwise unremarkable Physical Examination - Vital Signs Temperature: 99.1 F Blood Pressure: 130/80 Pulse: 106 Respirations: 16 Pulse Ox (%): 100 - Physical Exam General: Alert, In no apparent distress, Oriented x3 Respiratory: Clear to auscultation bilaterally, Normal air movement Cardiovascular: Regular rate/rhythm, Normal S1 S2, No murmurs Gastrointestinal: Normal bowel sounds, Soft and benign, Non-distended, No tenderness Musculoskeletal: No clubbing, No swelling, No tenderness Neurological: Normal strength at 5/5 x4 extr, Normal tone, Sensation intact, 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 - Studies Laboratory Data (last 24 hrs) 03/07/20 08:20: PT 11.2, INR 0.95 03/07/20 08:20: WBC 18.2 H, Hgb 15.6, Hct 51.9 H, Plt Count 416 H 03/07/20 08:20: Sodium 125 L, Potassium 4.2, BUN 29 H, Creatinine 2.15 H, Glucose 902 H*, Magnesium 3.2 H, Total Bilirubin 0.6, AST 29, ALT 69, Alkaline Phosphatase 157 H Medications List Reviewed: Yes Assessment & Plan - Problems (Diagnosis) (1) Acute respiratory failure Status: Acute (2) Diabetic ketoacidosis Status: Acute (3) Metabolic acidosis Status: Acute (4) Noncompliance Status: Acute (5) Aspiration pneumonia Status: Acute - Plan Continue with plan as mentioned below 1. Continue IV antibiotics 2. IV hydration 2. Insulin drip to be weaned off 3. Accu-Cheks q.a.c. q.h.s. 4. Labs tonight 5. ADA diet 6. Diabetic education 7. Insulin 70/30 8. GI and DVT prophylaxis Discharge Plan: Home Plan to discharge in: Greater than 2 days - Advance Directives Does patient have a Living Will: No Does patient have a Durable POA for Healthcare: No - Code Status/Comfort Care Code Status: Full Code Critical Care: No Time Spent Managing PTS Care (In Minutes): 35
[2020-03-08] MEDS: PANTOPRAZOLE 40 MG INJ IVP SCH ×2 (08:33→19:43)
[2020-03-08] MEDS: ENOXAPARIN 40 MG/0.4 ML SQ SCH (08:33)
[2020-03-08] MEDS ORDERED: PANTOPRAZOLE 40 MG INJ ONE (08:43)
[2020-03-08] MEDS ORDERED: ENOXAPARIN 40 MG/0.4 ML SQ ONE (08:44)
[2020-03-08] MEDS ORDERED: PIPER/TAZO/NS 3.375gm 3.375 GM/100 ML BAG ONE ×2 (08:44→17:33)
[2020-03-08] MEDS ORDERED: ETOMIDATE 20 MG/10 ML VIAL IV ONE (09:16)
[2020-03-08] MEDS ORDERED: ROCURONIUM 50 MG/5 ML VIAL IV ONE (09:16)
[2020-03-08] MEDS ORDERED: D50W 25 GM/50 ML SYRINGE/VIAL IV PRN (14:17)
[2020-03-08] MEDS ORDERED: GLUCAGON 1 MG/VIAL IM PRN (14:17)
[2020-03-08] MEDS ORDERED: INSULIN GLARGINE 100 UNITS/ML SQ ONE ×3 (14:19→15:30)
[2020-03-08 16:07] LABS: BUN Blood Urea Nitrogen 12 mg/dL (7-18); Bicarbonate 19 mmol/L (21-32); Glucose Level 213 mg/dL (74-106); Magnesium 2.7 mg/dL (1.8-2.4); Phosphorus 1.1 mg/dL (2.5-4.9); Potassium 3.1 mmol/L (3.5-5.1); Sodium Level 141 mmol/L (136-145)
[2020-03-08] MEDS: INSULIN -REGULAR HUMAN 50 UNIT/0.5 ML ML SQ SCH ×2 (17:22→19:59)
[2020-03-08] MEDS: NACHLORIDE 0.45% 1,000 ML IV SCH (17:22)
[2020-03-08] MEDS ORDERED: NACHLORIDE 0.45% 1,000 ML IV ONE (17:33)
[2020-03-08] MEDS ORDERED: POTASSIUM PHOS IN 0.9 % NACL 15 MMOL/250 ML BAG IV ONE (18:30)
[2020-03-09] MEDS ORDERED: PIPER/TAZO/NS 3.375gm 3.375 GM/100 ML BAG ONE (01:29)
[2020-03-09] MEDS: PIPER/TAZO/NS 3.375gm 3.375 GM/100 ML BAG IVPB SCH (01:37)
[2020-03-09] MEDS: D5W 1,000 ML with POTASSIUM CL 20 MEQ IV SCH ×2 (02:28)
[2020-03-09 04:15] LABS: BUN Blood Urea Nitrogen 7 mg/dL (7-18); Bicarbonate 23 mmol/L (21-32); Glucose Level 240 mg/dL (74-106); Phosphorus 2.2 mg/dL (2.5-4.9); Sodium Level 140 mmol/L (136-145)
[2020-03-09 04:23] LABS: Potassium 2.6 mmol/L (3.5-5.1)
[2020-03-09] MEDS: KCL 20 MEQ/100 mL IVPB 20 MEQ/100 ML BAG IV SCH ×2 (04:57→06:31)
[2020-03-09] MEDS ORDERED: POTASS/SODIUM PHOSPHATE 1 PKT POWD.PACK PO SCH (07:00)
[2020-03-09] MEDS ORDERED: POTASSIUM 25 MEQ EFFERV TAB PO ONE (07:13)
[2020-03-09] MEDS ORDERED: GLIMEPIRIDE 2 MG TABLET PO SCH (08:00)
[2020-03-09] MEDS ORDERED: POTASSIUM PHOS IN 0.9 % NACL 15 MMOL/250 ML BAG IV ONE (08:00)
[2020-03-09] MEDS ORDERED: POTASSIUM PHOS 30 MM in NA CHLORIDE 0.9% 500 ML IV ONE (08:00)
[2020-03-09] MEDS ORDERED: KCL 20 MEQ/100 mL IVPB 20 MEQ/100 ML BAG IV SCH (08:00)
[2020-03-09] MEDS: INSULIN -REGULAR HUMAN 50 UNIT/0.5 ML ML SQ SCH ×2 (08:04→11:59)
[2020-03-09] MEDS: ENOXAPARIN 40 MG/0.4 ML SQ SCH (08:04)
[2020-03-09] MEDS: PANTOPRAZOLE 40 MG INJ IVP SCH (08:08)
[2020-03-09] MEDS ORDERED: lisinopriL 10 MG TAB PO SCH (09:00)
[2020-03-09] MEDS ORDERED: PIPER/TAZO/NS 3.375gm 3.375 GM/100 ML BAG IVPB SCH (09:00)
[2020-03-09] MEDS ORDERED: GLIMEPIRIDE 1 MG PO SCH (09:00)
[2020-03-09] MEDS ORDERED: ATORVASTATIN 10 MG TAB PO SCH (09:00)
[2020-03-09 09:43] VITALS: O2SAT 98
[2020-03-09] MEDS: NACHLORIDE 0.45% 1,000 ML IV SCH (11:00)
--- NOTE | 2020-03-09 12:23 | P.DS ---
Discharge Date: 03/09/20 Disposition: ROUTINE DISCHARGE Discharge Condition: GOOD Reason for Admission: DIABETIC KETOACIDOSIS - Problems (1) Acute respiratory failure Status: Acute (2) Diabetic ketoacidosis Status: Acute (3) Metabolic acidosis Status: Acute (4) Noncompliance Status: Acute (5) Aspiration pneumonia Status: Acute Brief History of Present Illness: Patient is a 44-year-old gentleman who came to the hospital with diabetic ketoacidosis. Patient has been out of his insulin for the last 2 weeks. He has not taken anything at that time. He was getting more short of breath so he came into the emergency room for further evaluation. In the emergency room, he was found to be in diabetic ketoacidosis. His pH was actually 6.8. His bicarb was only 1. He had ketones and acetones positive. He was started on IV fluids and an insulin drip. Patient was given bicarb in the emergency room as well. Will be admitted to the intensive care unit for diabetic ketoacidosis. Patient will get repeat ABGs in the next hr. We will monitor him closely. Hospital Course: PATIENT WAS DOING POORLY AND HAD TO BE INTUBATED DURING HIS HOSPITAL STAY. IT WAS INITIALLY FELT HE HAD ASPIRATED WITH HIS CHEST X-RAY DID NOT SHOW ANY EVIDENCE OF ASPIRATION. PATIENT HAS A DKA CORRECTED. HIS PH INITIALLY WAS 6.8. AFTER AGGRESSIVE MANAGEMENT WE WERE ABLE TO CORRECT HIS ACIDOSIS. HE WAS ABLE TO BE EXTUBATED WITHOUT ANY COMPLICATIONS. CLINICALLY HE IS DOING WELL AND IS STABLE FOR DISCHARGE HOME WITH OUTPATIENT FOLLOW-UP. HE CAN FOLLOW UP IN 2 WEEKS WITH HIS PCP. WE HAVE EDUCATED HIM ON HOW TO TAKE HIS INSULIN. HE IS STABLE FOR DISCHARGE HOME. Vital Signs/Physical Exam: Temp Pulse Resp BP Pulse Ox 98.4 F 98 H 16 121/78 99 03/09/20 08:00 03/09/20 08:07 03/09/20 08:00 03/09/20 08:07 03/09/20 08:00 General: Alert, In no apparent distress, Oriented x3 Laboratory Data at Discharge: WBC 6.9 K/uL (4.3-10.9) D 03/08/20 06:10 Hgb 12.7 g/dL (13.6-17.9) L 03/08/20 06:10 Hct 35.6 % (39.6-49.0) L D 03/08/20 06:10 Plt Count 241 K/uL (152-406) 03/08/20 06:10 PT 11.2 SECONDS (9.5-12.5) 03/07/20 08:20 INR 0.95 03/07/20 08:20 APTT 25.3 SECONDS (24.3-36.9) 03/07/20 14:48 Sodium 140 mmol/L (136-145) 03/09/20 03:30 Potassium 2.6 mmol/L (3.5-5.1) L* 03/09/20 03:30 BUN 7 mg/dL (7-18) 03/09/20 03:30 Creatinine 0.62 mg/dL (0.55-1.3) 03/09/20 03:30 Glucose 240 mg/dL (74-106) H 03/09/20 03:30 Phosphorus 2.2 mg/dL (2.5-4.9) L D 03/09/20 03:30 Magnesium 2.7 mg/dL (1.8-2.4) H D 03/08/20 15:30 Total Bilirubin Cancelled 03/07/20 14:58 AST Cancelled 03/07/20 14:58 ALT Cancelled 03/07/20 14:58 Alkaline Phosphatase Cancelled 03/07/20 14:58 Triglycerides 193 mg/dL (<150) H 03/08/20 06:10 Cholesterol 242 mg/dL (<200) H 03/08/20 06:10 HDL Cholesterol 64 mg/dL (40-60) H 03/08/20 06:10 Cholesterol/HDL Ratio 3.78 03/08/20 06:10 Home Medications: Atorvastatin Calcium [Lipitor] 10 mg PO DAILY 03/08/20 Glimepiride [Amaryl] 1 mg PO DAILY 03/08/20 Metformin HCl 1,000 mg PO BID 03/08/20 lisinopriL [Lisinopril] 10 mg PO DAILY 03/08/20 Insulin 70/30 NPH/Reg Human [Novolin 70/30*] 25 unit SQ AC #2 vial 03/09/20 New Medications: Insulin 70/30 NPH/Reg Human [Novolin 70/30*] 25 unit SQ AC #2 vial Patient Discharge Instructions: OK TO DC IV AND DC HOME. FOLLOW-UP WITH PRIMARY CARE PROVIDER IN 1-2 WEEKS. PLEASE MAKE SURE PATIENT KNOWS HOW TO GIVE HIMSELF HIS INSULIN INJECTIONS PRIOR TO DISCHARGE. RETURN TO THE ER IF SYMPTOMS WORSEN. CALL or TEXT DR. FERGUSON AT [phone] IF ANY QUESTIONS REGARDING HOSPITAL STAY. PLEASE CALL THE FLOOR AT [phone] IF ANY MEDICATION OR NURSING QUESTIONS. Diet: ADA Activity: Fall precautions Time spent managing pt's care (in minutes): 35
[2020-03-09 14:07] VITALS: BP 130/80; TEMP 99.1
== END 2020-03-09 13:45 | disposition home or self-care (01) | DRG 637 ==
LOC: ER 08:09 → ERHOLD 09:23 → 4TH 03-08 18:37
PROVIDERS: ADMIT Hospitalist; ATTEND Hospitalist
PROC: 5A1935Z Respiratory Ventilation, Less than 24 Consecutive Hours (ICD-10-PCS; principal; 2020-03-07)
PROC: 0BH17EZ Insertion of Endotracheal Airway into Trachea, Via Natural or Artificial Opening (ICD-10-PCS; 2020-03-07)
DX: E10.10 Type 1 diabetes mellitus with ketoacidosis without coma (principal); J96.00 Acute respiratory failure, unspecified whether with hypoxia or hypercapnia; T38.3X6A Underdosing of insulin and oral hypoglycemic [antidiabetic] drugs, initial encounter; R00.0 Tachycardia, unspecified; Z91.14 Patient's other noncompliance with medication regimen; Z79.84 Long term (current) use of oral hypoglycemic drugs; Z79.899 Other long term (current) drug therapy; Z20.828 Contact with and (suspected) exposure to other viral communicable diseases
CPT/HCPCS: 36415; 71045; 74018; 80048; 80061; 80076; 81003; 82010; 82607; 82728; 82746; 82805; 82947; 83036; 83540; 83605; 83735; 83880; 84100; 84439; 84443; 84484; 85025; 85610; 85730; 93005; 94002; 94003; 99285; C9113; J1650; J1815; J2250; J2543; J2550; J2704; J3010; J3475; J3480; J7030; J7040; J7060; U0003

== ENCOUNTER 2021-09-12 18:57 | Emergency (ER) | payer BC, SELFPAY ==
[2021-09-12] MEDS ORDERED: FAMOTIDINE 20 MG/2 ML VIAL IV ONE (20:09)
[2021-09-12] MEDS ORDERED: MORPHINE 4 MG/ML SYR ONE (20:09)
[2021-09-12] MEDS ORDERED: ONDANSETRON 4 MG/2 ML VIAL ONE (20:09)
[2021-09-12 20:51] LABS: Absolute Lymphocytes (CBC) 1.7 K/uL (0.7-4.9); Hematocrit 38.7 % (39.6-49.0); Lymphocytes % 31.1 % (15.3-44.8); MPV 9.1 fL (7.6-11.3)
[2021-09-12 21:20] LABS: Albumin 3.5 g/dL (3.4-5.0); Bilirubin Total 0.6 mg/dL (0.2-1.0); Potassium 3.4 mmol/L (3.5-5.1)
[2021-09-12] MEDS ORDERED: INSULIN -REGULAR HUMAN 50 UNIT/0.5 ML ML ONE (22:03)
--- NOTE | 2021-09-12 22:17 | RAD REPORT ---
EXAM DESCRIPTION: CT - Abdomen Pelvis W Contrast - 09/12/2021 9:56 pm CLINICAL HISTORY: umbilical hernia;Abd pain COMPARISON: No comparisons TECHNIQUE: Biphasic, helical CT imaging of the abdomen and pelvis was performed following 100 ml non -ionic IV contrast. No oral contrast administered. All CT scans are performed using dose optimization technique as appropriate and may include automated exposure control or mA/KV adjustment according to patient size. FINDINGS: No suspicious findings in the lung bases. Liver size is normal. In the lateral subcapsular right lobe near the gallbladder fossa there is a 20 millimeter low-density mass. On arterial imaging this has discontinuous peripheral nodular enhancemen t. The lesion is nearly fully filled in with enhancement on venous phase imaging. Incidental hemangio ma is the most likely etiology. No other liver lesions seen. No portal vein abnormality. The spleen and pancreas show no suspicious findings. Gallbladder and biliary tree are also without adrian spicious finding. Symmetric renal function is seen with no hydronephrosis or suspicious renal mass. No pyelonephritis o r acute parenchymal process. Bilateral simple renal cysts are present. No adrenal abnormalities. Well filled urinary bladder shows no suspicious finding. No significant prostate gland or seminal vesicle finding. No dilated bowel loops or bowel wall thickening. Appendix is normal. Moderate stool volume is present in the colon from cecum through descending colon. No active colon process. No free air, free fluid or inflammatory stranding. No mass or bulky lymphadenopathy. A 3.5 centimet er fat only umbilical hernia is present with a 1.5 centimeter neck. Patient may have a much smaller 1 2 millimeter fat only supraumbilical midline ventral hernia. No congested or edematous fat. No abdomi nal wall hematoma or other abdominal wall significant finding. Bilateral small fat filled inguinal he rnias are present. No suspicious bony findings. Disc and bone degenerative changes are present. IMPRESSION: Contrast enhanced CT abdomen and pelvis showing no acute or emergent finding. Patient has a fat only 3.5 cm umbilical hernia with no congested or edematous fat. Patient also appea rs to have a smaller 1.5 cm supraumbilical fat only hernia. These are potentially a source for pain t tom there is no congested or edematous fat. A 20 millimeter low-density liver mass in the right lobe is believed to be an incidental hemangioma.
--- NOTE | 2021-09-12 22:42 | EDPHYS ---
Physician Documentation [facility] Name: Mikael Chavez Age: 46 yrs Sex: Male : 1975 Arrival Date: 09/12/2021 Time: 19:00 Bed 27 Private MD: ED Physician Binh Allen HPI: 09/12 19:50 This 46 yrs old Male presents to ER via Wheelchair with complaints of kdr Abdominal Swelling. 19:50 The patient presents with abdominal pain in the periumbilical area. Onset: The kdr symptoms/episode began/occurred gradually, 8 day(s) ago. The symptoms do not radiate. Associated signs and symptoms: Pertinent positives: chest pain, constipation, diarrhea. The symptoms are described as achy, crampy, vague. Modifying factors: The symptoms are alleviated by nothing, the symptoms are aggravated by coughing, breathing deeply, food, movement, pressure, touching the area, walking. Severity of pain: At its worst the pain was mild moderate just prior to arrival, in the emergency department the pain is unchanged. The patient has not experienced similar symptoms in the past. The patient has not recently seen a physician. The patient has bad GI/Abd s/s for about a year. Historical: - Allergies: 19:11 No Known Allergies; vc1 - Home Meds: 19:11 Novolin 70/30 InnoLet Insulin 100 unit/mL (70-30) Sub-Q inpn [Active]; vc1 19:29 Glimepiride Oral once daily [Active]; lisinopril Oral once daily [Active]; metformin amada 1,000 mg Oral tab 1 tab 2 times per day [Active]; - PMHx: 19:11 Diabetes - NIDDM; vc1 19:29 Hypertension; amada - Immunization history:: Adult Immunizations up to date, Client reports receiving the 2nd dose of the Covid vaccine. - Social history:: Smoking status: Patient denies any tobacco usage or history of. Patient uses alcohol, occasionally. ROS: 19:50 Constitutional: Negative for fever, chills, and weight loss, Eyes: Negative for injury, kdr pain, redness, and discharge, ENT: Negative for injury, pain, and discharge, Neck: Negative for injury, pain, and swelling, Cardiovascular: Negative for chest pain, palpitations, and edema, Respiratory: Negative for shortness of breath, cough, wheezing, and pleuritic chest pain, Back: Negative for injury and pain, : Negative for injury, bleeding, discharge, and swelling, MS/Extremity: Negative for injury and deformity, Skin: Negative for injury, rash, and discoloration, Neuro: Negative for headache, weakness, numbness, tingling, and seizure activity. Psych: Negative for depression, anxiety, suicide ideation, homicidal ideation, and hallucinations, Allergy/Immunology: Negative for hives, rash, and allergies, Endocrine: Negative for neck swelling, polydipsia, polyuria, polyphagia, and marked weight changes, Hematologic/Lymphatic: Negative for swollen nodes, abnormal bleeding, and unusual bruising. 19:50 Abdomen/GI: Positive for abdominal pain, nausea, of the umbilical area. Exam: 19:50 Constitutional: This is a well developed, well nourished patient who is awake, alert, kdr and in no acute distress. Head/Face: Normocephalic, atraumatic. Eyes: Pupils equal round and reactive to light, extra-ocular motions intact. Lids and lashes normal. Conjunctiva and sclera are non-icteric and not injected. Cornea within normal limits. Periorbital areas with no swelling, redness, or edema. Neck: Trachea midline, no thyromegaly or masses palpated, and no cervical lymphadenopathy. Supple, full range of motion without nuchal rigidity, or vertebral point tenderness. No Meningismus. Chest/axilla: Normal chest wall appearance and motion. Nontender with no deformity. No lesions are appreciated. Cardiovascular: Regular rate and rhythm with a normal S1 and S2. No gallops, murmurs, or rubs. Normal PMI, no JVD. No pulse deficits. Respiratory: Lungs have equal breath sounds bilaterally, clear to auscultation and percussion. No rales, rhonchi or wheezes noted. No increased work of breathing, no retractions or nasal flaring. Back: No spinal tenderness. No costovertebral tenderness. Full range of motion. Skin: Warm, dry with normal turgor. Normal color with no rashes, no lesions, and no evidence of cellulitis. MS/ Extremity: Pulses equal, no cyanosis. Neurovascular intact. Full, normal range of motion. Neuro: Awake and alert, GCS 15, oriented to person, place, time, and situation. Cranial nerves II-XII grossly intact. Motor strength 5/5 in all extremities. Sensory grossly intact. Cerebellar exam normal. Normal gait. Psych: Awake, alert, with orientation to person, place and time. Behavior, mood, and affect are within normal limits. 19:50 Abdomen/GI: Inspection: obese Bowel sounds: active, all quadrants, Palpation: soft, mild abdominal tenderness, in the umbilical area. Vital Signs: 19:04 BP 123 / 86; Pulse 105; Resp 20; Temp 99.5; Pulse Ox 99% ; Weight 81.65 kg; Height 5 vc1 ft. 4 in. (162.56 cm); Pain 10/10; 19:26 BP 126 / 83; Pulse 97; Resp 18; Temp 98.5; Pulse Ox 98% on R/A; amada 21:15 BP 111 / 75; Pulse 80; Resp 18; Pulse Ox 97% on R/A; ss7 22:45 BP 102 / 71; Pulse 84; Resp 18; Pulse Ox 97% ; ss7 19:04 Body Mass Index 30.90 (81.65 kg, 162.56 cm) vc1 MDM: 22:41 Patient medically screened. kdr 09/13 06:12 Data reviewed: vital signs, nurses notes. kdr 09/12 19:50 Order name: CBC with Diff; Complete Time: 21:27 kdr 09/12 19:50 Order name: CMP; Complete Time: 21:27 kdr 09/12 19:50 Order name: CT Abd/Pelvis - IV Contrast Only; Complete Time: 22:35 kdr 09/12 22:21 Order name: Glucose, Ancillary Testing; Complete Time: 22:35 EDMS Administered Medications: 09/12 20:14 Drug: morphine 4 mg Route: IVP; Site: right antecubital; ss7 22:45 Follow up: Response: No adverse reaction ss7 22:45 Follow up: Response: RASS: Alert and Calm (0) ss7 20:14 Drug: Zofran (Ondansetron) 4 mg Route: IVP; Site: right antecubital; ss7 22:45 Follow up: Response: Nausea is decreased ss7 20:16 Drug: Pepcid (famotidine) 20 mg Route: IVP; Site: right antecubital; ss7 22:45 Follow up: Response: No adverse reaction ss7 22:14 Drug: Insulin Regular Human 10 units {Co-Signature: sf1 (Jill Washburn RN).} Route: ss7 IVP; Site: right antecubital; 22:46 Follow up: Response: Temperature is decreased ss7 Disposition Summary: 09/12/21 22:41 Discharge Ordered Location: Home kdr Problem: an ongoing problem kdr Symptoms: have improved kdr Condition: Stable kdr Diagnosis - Other abdominal pain - Periumbilical kdr Followup: kdr - With: Private Physician - When: 2 - 3 days - Reason: If symptoms return, Further diagnostic work-up, Recheck today's complaints, Continuance of care, Re-evaluation by your physician Discharge Instructions: - Discharge Summary Sheet kdr - Abdominal Pain, Adult kdr - Ventral Hernia kdr - Umbilical Hernia, Adult kdr Forms: - Medication Reconciliation Form kdr - Thank You Letter kdr - Prescription Opioid Use kdr Prescriptions: - Tylenol-Codeine #3 300 mg-30 mg Oral - take 1 tablet by ORAL route every 4-6 hours As needed; 16 tablet; Refills: 0, kdr Product Selection Permitted Signatures: Dispatcher [employer] EDMS Binh Allen MD MD kdr Pili Soto, RN Laverne Stone RN RN 1 Marielos Neri RN RN ss7 Jill Washburn RN sf1
--- NOTE | 2021-09-12 22:42 | ER ---
Nurse's Notes [facility] Name: Mikael Chavez Age: 46 yrs Sex: Male : 1975 Arrival Date: 09/12/2021 Time: 19:00 Bed 27 Private MD: Diagnosis: Other abdominal pain-Periumbilical Presentation: 09/12 19:04 Chief complaint: Patient states: "my hernia is hurting really bad, It hurts so bad I vc1 can't sleep". Coronavirus screen: Vaccine status: Patient reports receiving the 2nd dose of the covid vaccine. Moderna, no booster At this time, the client does not indicate any symptoms associated with coronavirus-19. Ebola Screen: No symptoms or risks identified at this time. Initial Sepsis Screen: Does the patient meet any 2 criteria? HR > 90 bpm. No. Patient's initial sepsis screen is negative. Does the patient have a suspected source of infection? No. Patient's initial sepsis screen is negative. Risk Assessment: Do you want to hurt yourself or someone else? Patient reports no desire to harm self or others. Onset of symptoms was September 12, 2021. 19:04 Method Of Arrival: Wheelchair vc1 19:04 Acuity: BROOKE 3 vc1 Triage Assessment: 19:11 General: Appears in no apparent distress. uncomfortable, Behavior is calm, cooperative, vc1 appropriate for age. Pain: Complains of pain in abdomen Pain does not radiate. Pain currently is 10 out of 10 on a pain scale. Also complains of inability to perform activities of daily living, sleeplessness. GI: Abdomen is umbilical hernia noted. Historical: - Allergies: 19:11 No Known Allergies; vc1 - Home Meds: 19:11 Novolin 70/30 InnoLet Insulin 100 unit/mL (70-30) Sub-Q inpn [Active]; vc1 19:29 Glimepiride Oral once daily [Active]; lisinopril Oral once daily [Active]; metformin amada 1,000 mg Oral tab 1 tab 2 times per day [Active]; - PMHx: 19:11 Diabetes - NIDDM; vc1 19:29 Hypertension; amada - Immunization history:: Adult Immunizations up to date, Client reports receiving the 2nd dose of the Covid vaccine. - Social history:: Smoking status: Patient denies any tobacco usage or history of. Patient uses alcohol, occasionally. Screenin:26 Abuse screen: Denies threats or abuse. Denies injuries from another. Nutritional amada screening: No deficits noted. Tuberculosis screening: No symptoms or risk factors identified. Fall Risk None identified. Assessment: 19:20 Reassessment: Language line used: Cruz Lopez [id number]. vc1 19:21 General: Pt recv'd to room 27 at this time. . amada 19:24 General: Appears in no apparent distress. Behavior is calm, cooperative, English amada speaking only. Pain: Complains of pain in umbilicus. 19:28 GI: Bowel sounds present X 4 quads. amada 19:29 GI: Abd is soft. amada 19:47 Reassessment: Dr Allen at bedside spoke to pt about complaints, and expectations pt bb c/o abdominal pain, swelling, cramping, black stool for approx a year worse over the last 6 months. The pain is so bad is has not been able to sleep the last 8 days also making it difficult to walk. Vital Signs: 19:04 BP 123 / 86; Pulse 105; Resp 20; Temp 99.5; Pulse Ox 99% ; Weight 81.65 kg; Height 5 vc1 ft. 4 in. (162.56 cm); Pain 10/10; 19:26 BP 126 / 83; Pulse 97; Resp 18; Temp 98.5; Pulse Ox 98% on R/A; amada 21:15 BP 111 / 75; Pulse 80; Resp 18; Pulse Ox 97% on R/A; ss7 22:45 BP 102 / 71; Pulse 84; Resp 18; Pulse Ox 97% ; ss7 19:04 Body Mass Index 30.90 (81.65 kg, 162.56 cm) vc1 ED Course: 19:00 Patient arrived in ED. ds1 19:04 Binh Allen MD is Attending Physician. kdr 19:10 Triage completed. vc1 19:11 Arm band placed on right wrist. vc1 19:20 Pili Soto, RN is Primary Nurse. amada 19:26 Patient has correct armband on for positive identification. Call light in reach. Side amada rails up X 1. Adult w/ patient. Pulse ox on. NIBP on. 19:28 No provider procedures requiring assistance completed. amada 20:26 CMP Sent. ss7 20:26 CBC with Diff Sent. ss7 21:56 CT Abd/Pelvis - IV Contrast Only In Process Unspecified. EDMS 22:48 IV discontinued, intact. ss7 Administered Medications: 20:14 Drug: morphine 4 mg Route: IVP; Site: right antecubital; ss7 22:45 Follow up: Response: No adverse reaction ss7 22:45 Follow up: Response: RASS: Alert and Calm (0) ss7 20:14 Drug: Zofran (Ondansetron) 4 mg Route: IVP; Site: right antecubital; ss7 22:45 Follow up: Response: Nausea is decreased ss7 20:16 Drug: Pepcid (famotidine) 20 mg Route: IVP; Site: right antecubital; ss7 22:45 Follow up: Response: No adverse reaction ss7 22:14 Drug: Insulin Regular Human 10 units {Co-Signature: sf1 (Jill Washburn RN).} Route: ss7 IVP; Site: right antecubital; 22:46 Follow up: Response: Temperature is decreased ss7 Outcome: 19:28 Condition: stable amada 22:41 Discharge ordered by . kdr 22:48 Discharged to home ambulatory. ss7 22:48 Discharge instructions given to patient, Instructed on discharge instructions, follow up and referral plans. Demonstrated understanding of instructions, follow-up care. 23:09 Patient left the ED. ss7 Signatures: Dispatcher [employer] EDMS Binh Allen MD MD kdr Sanford, Demi ds1 Pili Haile RN RN bb Pili Soto RN RN bo Calcote, Vanessa, RN RN vc1 Marielos Neri RN RN ss7 Jill Washburn RN sf1 Corrections: (The following items were deleted from the chart) 23:09 22:45 BP 102 / 7; Pulse 84bpm; Resp 18bpm; Pulse Ox 97%; ss7 ss7
[2021-09-13 01:38] VITALS: TEMP 98.5
[2021-09-13 01:43] VITALS: O2SAT 97
[2021-09-13 01:44] VITALS: BP 102/71
== END 2021-09-12 23:09 | disposition home or self-care (01) ==
LOC: ER 18:57
DX: R10.9 Unspecified abdominal pain (principal); R11.0 Nausea; I10 Essential (primary) hypertension; E11.9 Type 2 diabetes mellitus without complications; Z79.4 Long term (current) use of insulin
CPT/HCPCS: 85025; 36415; 82947 ×2; 80053; 74177; 96375; 96374; 99284; Q9967; J2405

== ENCOUNTER 2021-09-19 09:47 | Day surgery (SDC) | payer BC ==
[2021-09-19] MEDS ORDERED: NA CHLORIDE 0.9% 1,000 ML ONE (10:00)
[2021-09-19] MEDS: CEFAZOLIN/SWI 2gm 2 GM/20 ML SYR ONE ×3 (10:45→12:10)
[2021-09-19] MEDS ORDERED: propofoL 200 MG/20 ML VIAL IV ONE (10:59)
[2021-09-19] MEDS ORDERED: FENTANYL CITR 250 MCG/5 ML ONE (11:00)
[2021-09-19] MEDS ORDERED: dexAMETHasone 10 MG/ML VIAL ONE (11:00)
[2021-09-19] MEDS ORDERED: MIDAZOLAM HCL 2 MG/2 ML INJ ONE (11:00)
[2021-09-19] MEDS ORDERED: LIDOCAINE 1% MPF 5 ML VIAL ONE (11:00)
[2021-09-19] MEDS ORDERED: ONDANSETRON 4 MG/2 ML VIAL ONE (11:00)
[2021-09-19] MEDS ORDERED: ROCURONIUM 50 MG/5 ML VIAL IV ONE (11:01)
[2021-09-19] MEDS: BUPIVACAINE 0.25% PF 10 ML VIAL ONE ×2 (11:57→12:20)
[2021-09-19] MEDS ORDERED: KETOROLAC 30 MG/ML INJ ONE (13:08)
[2021-09-19] MEDS ORDERED: Ringers Lactate 1,000 ML IV ONE (13:16)
--- NOTE | 2021-09-19 13:37 | P.OP ---
Preoperative diagnosis: Ventral Abdominal Wall Hernias Postoperative diagnosis: Ventral Abdominal Wall Hernias Primary procedure: Laparoscopic Ventral Abdominal Wall Hernia Anesthesia: GETA + Local Estimated blood loss: <10cc Specimen: hernia contents Findings: incarcerated omental fat containing ventral hernias x 2 Complications: None Implants: Bard Ventralite ST 11.4cm Round mesh with echo, sorbafix Transferred to: Recovery Room Condition: Good
[2021-09-19] MEDS: MORPHINE 4 MG/ML SYR ONE ×2 (13:50→13:55)
[2021-09-19 13:55] VITALS: O2SAT 98
[2021-09-19] MEDS ORDERED: HYDROCODONE/APAP 5/325 MG TAB ONE (14:29)
[2021-09-19 15:09] VITALS: BP 132/79; TEMP 98.4
--- NOTE | 2021-09-20 00:08 | OP ---
Date of Procedure: 09/19/2021 Surgeon: Neil Knapp MD, Preoperative Diagnosis: Ventral abdominal wall hernias. Postoperative Diagnosis: Ventral abdominal wall hernias. Procedure Performed: Laparoscopic ventral abdominal wall hernia repair with mesh. Anesthesia: General endotracheal plus local with 0.25% Marcaine. Estimated Blood Loss: Less than 10 mL. Specimens: Hernia contents, which is omental fat. Findings: Incarcerated omental fat containing ventral hernias x2. Complication: None. Implants: Bard Ventralight ST mesh with Echo positioning system 11.4 cm round mesh and SorbaFix abso rbable fixation tacks system. Disposition: The patient was transferred to the recovery room in good condition. Procedure In Detail: After informed was obtained, the patient was brought to the operating room, pre pped and draped in the usual sterile fashion. After adequate anesthesia was achieved, an area of the left upper quadrant was anesthetized with 0.25% Marcaine, sharply incised, and 5 mm trocars placed u nder direct vision without evidence of complication. Insufflation was obtained to 15 mmHg at this ti me. No injury to vital structures upon entry into the abdomen. Additional trocar chose in the left lower quadrant, similarly anesthetized, sharply incised. A 12 mm trocar was placed under direct visi on without evidence of complication. I then found that the patient had 2 approximately 1.5 cm ventra l abdominal wall hernias. These were incarcerated with omental fat. I was able to dissect these sophia e with the LigaSure device, removing the omental fat from these using a combination of sharp and Liga Sure bipolar cautery effectively removing the omentum and ligating part of this and sending it off fo r pathologic examination at the devascularized portions of this. At this point, the hernia sacs were inspected. I then closed them using interrupted 0 V-Loc sutures on the Endo stitch imbricating the hernia sac. At this point, I then sized the mesh appropriately and found an 11.4 cm Bard Ventralight round mesh appropriate to have lat east 5 cm of underlay circumferentially around this. The mesh wa s deployed in the central portion after making a stab incision in the infraumbilical position. I the n deployed the balloon system and secured the mesh to the anterior abdominal wall using the SorbaFix absorbable fixation tacks. The balloon deployment system was removed and the remaining tacks were pl aced. Approximately 60 tacks were used to the anterior abdominal wall with good apposition of the me sh to the anterior abdominal wall. I then removed the 12 mm trocar and closed the 12 mm trocar site using a Stanislaw-Zonia suture passer with 0 Vicryl in an interrupted fashion with good approximation of tissues. The abdomen was completely desufflated under direct visualization without evidence of c omplication. All skin edges were then copiously irrigated and closed with 4-0 Monocryl fashion. Venkat mabond was placed over top. The patient tolerated the procedure well without evidence of complicatio ns and transferred to PACU in good condition. All counts were correct at the end of the case. DANAE/SHU Voice ID: [id number] Report ID: [id number]
== END 2021-09-19 15:00 | disposition home or self-care (01) ==
LOC: OR 09:47
PROVIDERS: ATTEND Surgery
PROC: 0WUF4JZ Supplement Abdominal Wall with Synthetic Substitute, Percutaneous Endoscopic Approach (ICD-10-PCS; principal; 2021-09-19 11:45)
DX: K46.9 Unspecified abdominal hernia without obstruction or gangrene (principal); Z20.822 Contact with and (suspected) exposure to COVID-19
CPT/HCPCS: 82947 ×2; 88302; 49652; U0003; J2704; J2250; J3010; J0690; J7120; J7030; J2405; C1781; J1100